=== PATIENT | male | born 1940 | race Caucasian/White ===

== ENCOUNTER → 2021-05-16 | Outpatient (CLI) | payer OTHER ==
[~2021-05-16] MED LIST: FISH OIL 1,0001 EAC9 PO; LIPITOR 40 MG T40 M1 PO; LO-DOSE ASPIRIN81 M1 PO; METOPROLOL TART25 MG PO; MULTI VITAMIN1 EACH PO; OMEPRAZOLE40 MG PO
[2021-05-16 13:36] LABS: HEMATOCRIT 43.1 % (42.0-52.0); HEMOGLOBIN 14.4 gm/dL (14.0-18.0); MCH 28.7 pg (26.0-34.0); MCHC 33.4 g/dL (28.0-37.0); MCV 85.9 fL (80.0-100.0); RBC 5.02 mil/uL (4.50-6.00); RDW 14.8 % (10.5-14.5); WBC 8.7 thou/uL (4.0-11.0)
--- NOTE | 2021-05-16 13:40 | EKG ---
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 : 1940 Requested By: Danie Sethi Order Number: [id number] MD: Sajan Motley Measurements Intervals [place] Rate: 62 P: DC: 241 QRS: 121 QRSD: 157 T: -61 QT: 478 QTc: 486 Interpretive Statements Atrial-ventricular dual-paced complexes No further rhythm analysis attempted due to paced rhythm Prolonged DC interval Nonspecific intraventricular conduction delay Minimal ST depression, inferior leads No previous ECG available for comparison Electronically Signed On 05-16-2021 13:40:29 PRECIPITATOR by Sajan Motley [email or web address] <ELECTRONICALLY SIGNED> By: Sajan Motley MD, [facility] 05/16/21 1340 1329 1329 Sajan Motley MD, FACC /EPI
[2021-05-16 13:55] LABS: ALBUMIN 3.8 g/dL (3.4-5.0); POTASSIUM 4.3 mmol/L (3.5-5.1); TOTAL BILIRUBIN 0.5 mg/dL (0.2-1.0); TOTAL PROTEIN 8.1 g/dL (6.4-8.2)
== END ==
LOC: RAD 12:47 → LAB 12:47
PROVIDERS: ATTEND Otolaryngology
DX: C44.329 Squamous cell carcinoma of skin of other parts of face (principal); M95.2 Other acquired deformity of head; I51.7 Cardiomegaly; Z95.0 Presence of cardiac pacemaker

== ENCOUNTER → 2021-05-21 | Day surgery (SDC) | payer OTHER ==
[~2021-05-21] VITALS: Ht 167.6 cm; Wt 70.3 kg
[2021-05-21 10:52] LABS: HEMATOCRIT 45.1 % (42.0-52.0); HEMOGLOBIN 14.6 gm/dL (14.0-18.0); MCH 28.3 pg (26.0-34.0); MCHC 32.4 g/dL (28.0-37.0); MCV 87.3 fL (80.0-100.0); RBC 5.16 mil/uL (4.50-6.00); RDW 15.1 % (10.5-14.5); WBC 10.3 thou/uL (4.0-11.0)
[2021-05-21 11:02] LABS: CALCIUM 9.9 mg/dL (8.5-10.1); CREATININE 0.9 mg/dL (0.7-1.3); POTASSIUM 4.1 mmol/L (3.5-5.1)
[2021-05-21 11:08] LABS: TOTAL BILIRUBIN 0.7 mg/dL (0.2-1.0); TOTAL PROTEIN 8.5 g/dL (6.4-8.2)
[2021-05-21 12:00] VITALS: BP 155/93
[2021-05-21 16:11] VITALS: BP 155/93
[2021-05-21 16:21] VITALS: BP 155/93
--- NOTE | 2021-05-22 14:10 | O ---
[facility] [address] OPERATIVE REPORT Name: MADDISON WELLS Room #: REG [facility].#: [id number] Admission: 05/21/21 Attend Phys: Danie Sethi MD Discharge: Date of : 40 Report #: [id number] THIS REPORT FOR: cc: Franko Drew MD, J. Christopher MD Williams, Carson MD ~ cc: Aldo Drew MD, Javy Marc MD DATE OF SERVICE: 05/21/2021 DATE OF SURGERY: 05/21/2021 PREOPERATIVE DIAGNOSES: 1. Squamous cell carcinoma, left lateral cheek. 2. Mohs defect, left lateral cheek, 5 x 5.5 cm. POSTOPERATIVE DIAGNOSES: 1. Squamous cell carcinoma, left lateral cheek. 2. Mohs defect, left lateral cheek, 5 x 5.5 cm. PROCEDURE PERFORMED: 1. Adjacent tissue transfer, left cheek more than 30 square cm, code 95171. 2. Scar release of the face, code 08475. 3. Excision of deep cervical lymph node using gamma probe detection, code 45038. PRIMARY SURGEON: Danie Sethi MD SENIOR COPYWRITER: None. ANESTHESIA: General. COMPLICATIONS: None. ESTIMATED BLOOD LOSS: 20 mL. SPECIMEN: Left level 2 cervical lymph node. INDICATIONS FOR PROCEDURE: The patient is an 80-year-old male with past medical history of cutaneous malignancy including squamous cell carcinoma, which underwent Mohs micrographic excision late last week. The patient was referred to me for formal reconstruction of this area. He agreed to the above-named procedures and signed consent in the office. DESCRIPTION OF PROCEDURE: The patient was identified in the preoperative area before being transported to the operating room and placed supine on the [address] [address] OPERATIVE REPORT Name: RUSSELLMADDISON ARGUELLO Room #: REG [facility]..#: [id number] Admission: 05/21/21 Attend Phys: Danie Sethi MD Discharge: Date of : 40 Report #: [id number] operating table. At this point, general anesthesia was induced and a timeout was called to ensure patient identity and procedure to be performed. Once all were in agreement, the wound dressings were removed and the Neoprobe was used to try to identify the sentinel lymph node. This was unsuccessful in highlighting any likely area of a sentinel lymph node, therefore a likely location in left level 2 was chosen to pursue lymph node dissection. At this point, the entire wound and a planned skin incision for a planned left cervicofacial advancement flap was planned and then injected with 1% lidocaine with 1:100,000 epinephrine solution, totalling 10 mL. Once this was performed, the patient was prepped and draped in the normal fashion and the table rotated 90 degrees. Starting first, a skin incision was made in a small preauricular crease following an area around the patient's earlobe back into the postauricular skin in a bilobed fashion and then following a natural skin rode down the neck and towards the midline. This totaled approximately 20 cm long. A very long wide skin flap was raised in the supraplatysmal plane staying in the subcutaneous layer just deep to the hair follicles. This was done using a facelift scissor. Preservation of the external jugular vein and greater auricular nerve was performed. Once the skin flap was widely raised, I moved toward excision of the deep cervical node. I again attempted using the Neoprobe; however, this failed to identify any likely area of lymphatic drainage. Therefore, I elected to perform a standard level 2 lymph node investigation and identified what was the most likely sentinel node in my view and I excised this under direct visualization. This was passed off for permanent specimen. I then closed this area in 1 single layer using a 4-0 Monocryl. Attention was then turned toward further undermining of the skin flap and rotation and advancement of this into the defect of the left lateral cheek. This was done with relative ease. Once this was performed, a 15-Bruneian Walker drain was placed in the postauricular placement and trimmed to length. Hemostasis was achieved using bipolar cautery and confirmed and then wound closure occurred in layers using 3-0 Monocryl in a deep dermal fashion followed by running 5-0 plain gut suture to reapproximate the skin edge. This resulted in excellent cosmetic and functional outcomes of closing this defect. Please note that all instrument, sponge and needle counts were correct x 2. The patient was then dressed with Polysporin antibiotic ointment and reversed from anesthesia. He was transported to PACU in stable condition. DISPOSITION: The patient will be discharged after meeting general discharge criteria. He has been given prescriptions for pain medication and antibiotics. He has been given wound care instructions in writing. He will follow up with me in approximately 5 days' time for a initial postoperative wound check and a drain removal. <ELECTRONICALLY SIGNED> By: Danie Sethi MD 05/22/21 1410 1512 1715 Danie Sethi MD /nt
--- NOTE | 2021-05-26 17:06 | PATH ---
[facility] [address] [place] [address] PATHOLOGY RPT PROCEDURE Name: MADDISON BOSSNDELL Room #: REG [facility] M.R.#: [id number] Admission: 05/21/21 Date of : 40 Discharge: Report #: [id number] Path Case #: [id number] [facility] Accession Number: [id number] . 01 Material submitted: . lymph node - LEFT LEVEL TWO NODE. Modifiers: left . 01 Clinical history: . MOHS DEFECT OF CHEEK, SQUAMOUS CELL CARCINOMA OF LEFT CHEEK . 02 Diagnosis: Left level 2 lymph node, excision: - One lymph node identified with mild follicular hyperplasia. - No epithelial malignancy or lymphoproliferative disease identified. (ANK:rico; 05/26/2021) QMS 05/26/2021 1329 Local . 02 Comment: This case has been co-reviewed with Dr. Yesenia Rodriguez, who agrees on 05/26/2021. (ANK:rico; 05/26/2021) . 02 Electronically signed: . Sarah Blake MD, Pathologist NPI- [id number] . 01 Gross description: . The specimen is received in formalin, labeled "Maddison Boss, left level 2 node". Received is a single, 1.7 x 1.0 x 0.7 cm, sales-yellow to pink, piece of fibroadipose tissue. Dissection of the adipose tissue yields a single, ovoid, sales-pink, candidate lymph node, measuring 1.5 x 0.8 x 0.6 cm. The candidate lymph node is bisected to reveal a sales-white, solid and unremarkable cut surface. The candidate lymph node is entirely submitted in cassette A1. (JGG; 05/22/2021) JGG/JGG 05/22/2021 1302 Local . 02 Pathologist provided ICD-10: R59.9 . 02 CPT . 876222 Specimen Comment: A courtesy copy of this report has been sent to [phone] Specimen Comment: [phone] Specimen Comment: Report sent to / DR NAYAK Performed at: [address] [place] [address] PATHOLOGY RPT PROCEDURE Name: MADDISON BOSS Room #: REG [facility] M.Kari.#: [id number] Admission: 05/21/21 Date of : 40 Discharge: Report #: [id number] Path Case #: [id number] [facility] [place] [address], [place], [place] [id number] MD Mike Malik MD Phone: [phone] Performed at: [address] [id number] MD Sarah Blake MD Phone: [phone]
== END | disposition home or self-care (01) ==
LOC: OR → EDSTATUS 13:12 → OR 15:36
PROVIDERS: Student in an Organized Health Care Education/Training Program; ATTEND Otolaryngology
DX: C44.329 Squamous cell carcinoma of skin of other parts of face (principal); M95.2 Other acquired deformity of head; I10 Essential (primary) hypertension; E78.5 Hyperlipidemia, unspecified; Z98.890 Other specified postprocedural states; Z79.899 Other long term (current) drug therapy; Z79.01 Long term (current) use of anticoagulants; Z87.891 Personal history of nicotine dependence; Z98.41 Cataract extraction status, right eye; Z95.0 Presence of cardiac pacemaker; Z95.1 Presence of aortocoronary bypass graft; Z98.42 Cataract extraction status, left eye; Z95.2 Presence of prosthetic heart valve; Z85.828 Personal history of other malignant neoplasm of skin; Z79.82 Long term (current) use of aspirin; Z20.822 Contact with and (suspected) exposure to COVID-19
CPT/HCPCS: 50010; 50331; 50386; 50403; 51412; 56526; 56527; 57006; 62110; 62900